=== PATIENT | female | born 1945 | race African-American/Black ===

== ENCOUNTER 2018-05-17 00:28 | Inpatient (IN) | payer OTHER, MEDICAID ==
[~2018-05-17] VITALS: Ht 157.5 cm; Wt 80.3 kg
[2018-05-17] VITALS (11 sets, daily range): BP systolic 92–126; BP diastolic 40–50
[2018-05-17] MEDS ORDERED: PANTOPRAZOLE SODIUM 40 MG/VIAL IV STA (01:00)
[2018-05-17] MEDS ORDERED: ONDANSETRON HCL 4MG/2ML INJ IV STA (01:00)
[2018-05-17 02:08] LABS: BASOPHILS % 0.6 % (0.0-2.0); EOSINOPHILS % 0.2 % (0.0-5.0); HEMATOCRIT. 24.8 % (36.0-48.0); HEMOGLOBIN. 7.8 g/dL (12.0-16.0); LYMPHOCYTES % 9.1 % (20.0-50.0); MEAN CORPUSCULAR HEMOGLOBIN 29.3 pg (28.0-32.0); MEAN CORPUSCULAR VOLUME 92.8 fL (81.0-99.0); MONOCYTES % 10.4 % (2.0-8.0); NEUTROPHILS % 79.7 % (40.0-76.0); PLATELET 138 x1000/uL (130-400); RED BLOOD CELL COUNT 2.67 mill/uL (4.2-5.4); RED CELL DISTRIBUTION WIDTH 17.5 % (11.6-14.6)
[2018-05-17 02:09] LABS: CHLORIDE 111 mEq/L (98-107)
[2018-05-17 02:12] LABS: INR 1.1; PARTIAL THROMBOPLASTIN TIME 29.4 sec (23.4-31.0)
[2018-05-17] MEDS ORDERED: ONDANSETRON HCL 4MG/2ML INJ IV PRN (04:00)
[2018-05-17] MEDS ORDERED: DEXTROSE 50% WATER 50ML SYRINGE IV PRN (04:00)
[2018-05-17] MEDS: INSULIN LISPRO 100 UNITS/ML SUBCUT SCH ×4 (08:20→21:00)
[2018-05-17] MEDS: BLOOD SUGAR DIAGNOSTIC STRIP TEST SCH ×4 (09:49→21:00)
[2018-05-17] MEDS: PANTOPRAZOLE SODIUM 40 MG/VIAL IV SCH ×2 (10:15→23:06)
[2018-05-17] MEDS ORDERED: ALBU05 NEB (11:00)
[2018-05-17] MEDS ORDERED: HYDR-4135 MT (11:00)
[2018-05-17] MEDS ORDERED: ASPI-1159 MT (11:00)
[2018-05-17] MEDS ORDERED: CHOL200077 MT (11:00)
[2018-05-17] MEDS ORDERED: B CO1TAB4 PO (11:00)
[2018-05-17] MEDS ORDERED: VITAMIN D3 PO (11:00)
[2018-05-17] MEDS ORDERED: DILT180C51 MT (11:00)
[2018-05-17] MEDS ORDERED: CINA60 MT (11:00)
[2018-05-17] MEDS ORDERED: GLUC-210 PO (11:00)
[2018-05-17] MEDS ORDERED: SEVE800T8 MT (11:00)
[2018-05-17] MEDS ORDERED: FOS1G MT (11:00)
[2018-05-17] MEDS ORDERED: FLUT1DIS6 INH (11:00)
[2018-05-17] MEDS ORDERED: LISI40TA4 MT (11:00)
[2018-05-17] MEDS ORDERED: NITR0.4T SL (11:02)
[2018-05-17] MEDS: SODIUM CHLORIDE 0.9% 1,000 ML IV SCH (11:18)
[2018-05-17 12:17] LABS: BASOPHILS % 0.7 % (0.0-2.0); EOSINOPHILS % 0.2 % (0.0-5.0); HEMATOCRIT. 21.9 % (36.0-48.0); LYMPHOCYTES % 18.4 % (20.0-50.0); MEAN CORPUSCULAR HEMOGLOBIN 29.2 pg (28.0-32.0); MEAN CORPUSCULAR VOLUME 91.3 fL (81.0-99.0); MEAN PLATELET VOLUME 7.7 fl (7.4-10.4); MONOCYTES % 12.6 % (2.0-8.0); NEUTROPHILS % 68.1 % (40.0-76.0); PLATELET 106 x1000/uL (130-400); RED CELL DISTRIBUTION WIDTH 17.8 % (11.6-14.6)
[2018-05-17 14:49] LABS: TOTAL IRON BINDING CAPACITY 229 ug/dL (250-450)
[2018-05-17 15:07] LABS: FOLIC ACID (FOLATE) SERUM 18.7 ng/mL (>5.38)
[2018-05-17 17:20] LABS: HEMOGLOBIN 6.9 g/dL (12.0-16.0)
[2018-05-17 17:21] LABS: HEMATOCRIT 21.3 % (36.0-48.0)
[2018-05-18] VITALS (10 sets, daily range): BP systolic 100–132; BP diastolic 43–64
[2018-05-18 00:19] LABS: HEMATOCRIT 22.7 % (36.0-48.0); HEMOGLOBIN 7.6 g/dL (12.0-16.0)
[2018-05-18 07:15] LABS: BASOPHILS % 0.5 % (0.0-2.0); EOSINOPHILS % 1.4 % (0.0-5.0); HEMATOCRIT. 22.4 % (36.0-48.0); HEMOGLOBIN. 7.5 g/dL (12.0-16.0); LYMPHOCYTES % 16.9 % (20.0-50.0); MEAN CORPUSCULAR HEMOGLOBIN 30.3 pg (28.0-32.0); MEAN CORPUSCULAR VOLUME 90.2 fL (81.0-99.0); MEAN PLATELET VOLUME 7.9 fl (7.4-10.4); MONOCYTES % 13.2 % (2.0-8.0); PLATELET 119 x1000/uL (130-400); RED BLOOD CELL COUNT 2.48 mill/uL (4.2-5.4); RED CELL DISTRIBUTION WIDTH 17.4 % (11.6-14.6)
[2018-05-18] MEDS: BLOOD SUGAR DIAGNOSTIC STRIP TEST SCH ×4 (07:30→20:16)
[2018-05-18] MEDS: INSULIN LISPRO 100 UNITS/ML SUBCUT SCH ×4 (08:00→20:30)
[2018-05-18 08:05] LABS: HEPATITIS B SURFACE ANTIGEN NEGATIVE
[2018-05-18] MEDS: PANTOPRAZOLE SODIUM 40 MG/VIAL IV SCH ×2 (09:58→20:16)
[2018-05-18] MEDS: SODIUM CHLORIDE 0.9% 1,000 ML IV SCH (09:59)
[2018-05-18 12:04] LABS: HEMATOCRIT 23.1 % (36.0-48.0); HEMOGLOBIN 7.6 g/dL (12.0-16.0)
[2018-05-18] MEDS: ACETAMINOPHEN 325MG TABLET PO PRN ×2 (12:23→18:53)
== END 2018-05-18 22:05 | disposition short-term general hospital (02) | DRG 377 ==
LOC: ER 00:28 → 5EST 02:30 → EDBEDREQSVC 02:32 → EDBEDREQ 02:32 → ENRESERV 07:19
PROVIDERS: ADMIT Internal Medicine; ATTEND Internal Medicine
PROC: 30233N1 Transfusion of Nonautologous Red Blood Cells into Peripheral Vein, Percutaneous Approach (ICD-10-PCS; principal; 2018-05-17)
PROC: 5A1D70Z Performance of Urinary Filtration, Intermittent, Less than 6 Hours Per Day (ICD-10-PCS; 2018-05-17)
DX: K92.0 Hematemesis (principal); N18.6 End stage renal disease; E46 Unspecified protein-calorie malnutrition; E87.0 Hyperosmolality and hypernatremia; I12.0 Hypertensive chronic kidney disease with stage 5 chronic kidney disease or end stage renal disease; K92.1 Melena; D64.9 Anemia, unspecified; E11.649 Type 2 diabetes mellitus with hypoglycemia without coma; I95.9 Hypotension, unspecified; E11.22 Type 2 diabetes mellitus with diabetic chronic kidney disease; I25.10 Atherosclerotic heart disease of native coronary artery without angina pectoris; E87.5 Hyperkalemia; K21.9 Gastro-esophageal reflux disease without esophagitis; Z79.82 Long term (current) use of aspirin; Z83.3 Family history of diabetes mellitus; Z87.11 Personal history of peptic ulcer disease; Z99.2 Dependence on renal dialysis; Z88.0 Allergy status to penicillin; Z68.32 Body mass index [BMI] 32.0-32.9, adult
CPT/HCPCS: 36415; 71045; 80048; 82607; 82728; 82746; 82962; 83540; 83550; 83605; 85014; 85018; 86803; 86850; 86900; 86920; 87340; 93970; 96374; 96375; 99291; C9113; J2405; J7040; J7050; P9016

== ENCOUNTER 2022-03-28 06:00 | Inpatient (IN) | payer OTHER, MEDICAID ==
[2022-03-28] VITALS (39 sets, daily range): BP systolic 80–162; BP diastolic 32–104
[~2022-03-28] VITALS: Ht 167.6 cm; Wt 59.9 kg
[~2022-03-28 06:00] MED LIST: ALBU05 NEB; ASPI-1497 MT; B-CO1TAB PO; CHOL200077 MT; CINA60 MT; DILT180C51 MT; FLUT1DIS6 INH; FOS1G MT; GLUC-210 PO; HYDR-4135 MT; LISI40TA13 MT; NITR0.4T SL; SEVE800T8 MT; VITAMIN D3 PO
[2022-03-28] MEDS ORDERED: DEXTROSE 50% WATER 50ML SYRINGE IV ONE (06:15)
[2022-03-28 06:42] LABS: HEMATOCRIT. 36.1 % (36.0-48.0); HEMOGLOBIN. 10.8 g/dL (12.0-16.0); MEAN CORPUSCULAR VOLUME 96.9 fL (81.0-99.0); MEAN PLATELET VOLUME 7.8 fl (7.4-10.4); PLATELET 137 x1000/uL (130-400); RED BLOOD CELL COUNT 3.72 mill/uL (4.2-5.4); RED CELL DISTRIBUTION WIDTH 18.9 % (11.6-14.6)
[2022-03-28 06:48] LABS: CHLORIDE 110 mEq/L (98-107)
[2022-03-28 07:26] LABS: PLATELET ESTIMATE NORMAL
[2022-03-28] MEDS ORDERED: FUROSEMIDE 40MG/4ML VIAL IVP ONE (08:30)
[2022-03-28] MEDS ORDERED: VANCOMYCIN 1G PREMIX 200 ML IV ONE (08:30)
[2022-03-28] MEDS ORDERED: PIPERACILLIN/TAZ 3.375G PREMIX 50 ML IV ONE (08:30)
[2022-03-28 08:32] LABS: BG BASE EXCESS -4.3 mmol/L (-2.0-2.0); BG CARBOXYHEMOGLOBIN 1.3 % (0.5-1.5); BG DEOXYHEMOGLOBIN 1.8 % (0.0-5.0); BG HCO3 ACT 24.5 mmol/L (22.0-26.0); BG METHEMOGLOBIN 0.2 % (0.0-1.5); BG OXYGEN SATURATION 98.2 % (92.0-98.5); BG OXYHEMOGLOBIN 96.7 % (94.0-97.0); BG PCO2 65.3 mmHg (35.0-45.0); BG PH 7.192 (7.350-7.450); BG PO2 135.2 mmHg (75.0-100.0); BG SAMPLE SITE RIGHT RADIAL; BG TOTAL HEMOGLOBIN 10.8 g/dL (12.0-18.0); BG VENT MODE MASK - BIPAP
[2022-03-28] MEDS ORDERED: PROPOFOL 10MG/ML 100ML 100 ML IV ONE (08:45)
[2022-03-28] MEDS ORDERED: ETOMIDATE 2MG/ML 10ML VIAL IV ONE (08:45)
[2022-03-28] MEDS ORDERED: SUCCINYLCHOLINE CHLORIDE 200MG/10ML IV ONE (08:45)
[2022-03-28] MEDS: NOREPINEPHRINE 8MG/250ML PMX 250 ML IV STA ×2 (10:10→10:15)
[2022-03-28] MEDS ORDERED: ACETAMINOPHEN 650MG SUPP PR ONE (10:15)
[2022-03-28] MEDS ORDERED: SODIUM CHLORIDE 0.9% 1,000 ML IV ONE (10:15)
[2022-03-28 11:05] LABS: BG BASE EXCESS -8.2 mmol/L (-2.0-2.0); BG CARBOXYHEMOGLOBIN 1.3 % (0.5-1.5); BG HCO3 ACT 21.7 mmol/L (22.0-26.0); BG METHEMOGLOBIN 0.2 % (0.0-1.5); BG OXYGEN SATURATION 75.6 % (92.0-98.5); BG OXYHEMOGLOBIN 74.5 % (94.0-97.0); BG PCO2 66.8 mmHg (35.0-45.0); BG PH 7.129 (7.350-7.450); BG PO2 47.7 mmHg (75.0-100.0); BG SAMPLE SITE RIGHT BRACHIAL; BG VENT MODE VENT - AC
[2022-03-28] MEDS ORDERED: ACETAMINOPHEN 650MG SUPP PR PRN (11:45)
[2022-03-28] MEDS ORDERED: DEXTROSE 50% WATER 50ML SYRINGE IV PRN (11:45)
[2022-03-28 12:30] LABS: BG CARBOXYHEMOGLOBIN 1.2 % (0.5-1.5); BG FRACTION INSPIRED OXYGEN 45; BG HCO3 ACT 21.1 mmol/L (22.0-26.0); BG METHEMOGLOBIN 0.4 % (0.0-1.5); BG OXYGEN SATURATION 83.7 % (92.0-98.5); BG OXYHEMOGLOBIN 82.4 % (94.0-97.0); BG PCO2 66.9 mmHg (35.0-45.0); BG PH 7.116 (7.350-7.450); BG SAMPLE SITE RIGHT RADIAL; BG TOTAL HEMOGLOBIN 12.3 g/dL (12.0-18.0); BG VENT MODE VENT - AC
[2022-03-28] MEDS ORDERED: PROPOFOL 10MG/ML 100ML 100 ML IV PRN (12:30)
[2022-03-28] MEDS ORDERED: NOREPINEPHRINE 8MG/250ML PMX 250 ML IV PRN (12:30)
[2022-03-28] MEDS ORDERED: ENOXAPARIN 40MG/0.4ML SYR SUBCUT SCH (13:00)
[2022-03-28] MEDS ORDERED: ENOXAPARIN 30MG/0.3ML SYR SUBCUT SCH (13:00)
[2022-03-28] MEDS: INSULIN LISPRO 100 UNITS/ML SUBCUT SCH ×3 (13:03→21:00)
[2022-03-28] MEDS ORDERED: IPRATROPIUM/ALBUTEROL 0.5-3(2.5)MG/3ML NEB HHN PRN (13:15)
[2022-03-28] MEDS: BLOOD SUGAR DIAGNOSTIC STRIP TEST SCH ×3 (13:38→21:26)
[2022-03-28] MEDS ORDERED: NOREPINEPHRINE 8 MG in DEXT 5% WATER 242 ML IV PRN (14:00)
[2022-03-28] MEDS: ENOXAPARIN 30MG/0.3ML SYR SUBCUT SCH (14:34)
[2022-03-28] MEDS: IPRATROPIUM/ALBUTEROL 0.5-3(2.5)MG/3ML NEB HHN SCH ×2 (16:00→20:27)
[2022-03-28] MEDS ORDERED: VANCOMYCIN 500MG PREMIX 100 ML IV SCH (18:00)
[2022-03-28] MEDS: NOREPINEPHRINE 32 MG in DEXT 5% WATER 218 ML IV PRN (18:01)
[2022-03-28] MEDS: ACETAMINOPHEN 650MG/20.3ML UDC PO PRN (18:47)
[2022-03-28] MEDS ORDERED: PIPERACILLIN/TAZOBACTAM 3.375 G in DEXTROSE 5% WATER 50 ML IV SCH (21:00)
[2022-03-28] MEDS: FAMOTIDINE 20MG/2ML VIAL IV SCH (21:28)
[2022-03-28] MEDS: PIPERACILLIN/TAZOBACTAM 3.375 G in DEXTROSE 5% WATER 50 ML IV SCH (23:00)
[2022-03-29] VITALS (76 sets, daily range): BP systolic 96–153; BP diastolic 43–77
[2022-03-29] MEDS: IPRATROPIUM/ALBUTEROL 0.5-3(2.5)MG/3ML NEB HHN SCH ×6 (00:41→20:30)
[2022-03-29 05:53] LABS: HEMATOCRIT. 34.8 % (36.0-48.0); HEMOGLOBIN. 10.4 g/dL (12.0-16.0); MEAN CORPUSCULAR HEMOGLOBIN 28.7 pg (28.0-32.0); MEAN CORPUSCULAR VOLUME 95.9 fL (81.0-99.0); MEAN PLATELET VOLUME 8.3 fl (7.4-10.4); PLATELET 131 x1000/uL (130-400); RED BLOOD CELL COUNT 3.63 mill/uL (4.2-5.4); RED CELL DISTRIBUTION WIDTH 18.7 % (11.6-14.6)
[2022-03-29] MEDS: INSULIN LISPRO 100 UNITS/ML SUBCUT SCH ×4 (06:11→21:00)
[2022-03-29] MEDS: BLOOD SUGAR DIAGNOSTIC STRIP TEST SCH ×4 (06:11→21:13)
[2022-03-29 06:15] LABS: CHLORIDE 113 mEq/L (98-107)
[2022-03-29 06:36] LABS: T4 FREE 1.19 ng/dL (0.76-1.46)
[2022-03-29 07:51] LABS: BG BASE EXCESS -2.4 mmol/L (-2.0-2.0); BG CARBOXYHEMOGLOBIN 0.7 % (0.5-1.5); BG DEOXYHEMOGLOBIN 4.3 % (0.0-5.0); BG FRACTION INSPIRED OXYGEN 60; BG HCO3 ACT 22.6 mmol/L (22.0-26.0); BG METHEMOGLOBIN 0.2 % (0.0-1.5); BG OXYGEN SATURATION 95.7 % (92.0-98.5); BG OXYHEMOGLOBIN 94.8 % (94.0-97.0); BG PCO2 39.8 mmHg (35.0-45.0); BG PH 7.372 (7.350-7.450); BG PO2 79.6 mmHg (75.0-100.0); BG SAMPLE SITE RIGHT RADIAL; BG TOTAL HEMOGLOBIN 11.3 g/dL (12.0-18.0); BG TOTAL RESPIRATORY RATE 28 b/min; BG VENT MODE VENT - AC
[2022-03-29] MEDS: ASPIRIN 81MG EC TABLET PO SCH (10:00)
[2022-03-29] MEDS: PIPERACILLIN/TAZOBACTAM 3.375 G in DEXTROSE 5% WATER 50 ML IV SCH ×2 (10:06→21:13)
[2022-03-29] MEDS: DEXAMETHASONE 10 MG/ML VIAL IV SCH (10:07)
[2022-03-29] MEDS: ENOXAPARIN 30MG/0.3ML SYR SUBCUT SCH (16:54)
[2022-03-29 18:34] LABS: HEPATITIS B SURFACE ANTIGEN NEGATIVE
[2022-03-29] MEDS: FAMOTIDINE 20MG/2ML VIAL IV SCH (21:12)
[2022-03-30] VITALS (87 sets, daily range): BP systolic 94–138; BP diastolic 45–83
[2022-03-30] MEDS: IPRATROPIUM/ALBUTEROL 0.5-3(2.5)MG/3ML NEB HHN SCH ×6 (00:52→20:15)
[2022-03-30 05:51] LABS: HEMATOCRIT 33.7 % (36.0-48.0); HEMOGLOBIN 10.4 g/dL (12.0-16.0); MEAN CORPUSCULAR HEMOGLOBIN 28.7 pg (28.0-32.0); MEAN CORPUSCULAR VOLUME 93.5 fL (81.0-99.0); PLATELET 146 x1000/uL (130-400); RED BLOOD CELL COUNT 3.61 mill/uL (4.2-5.4); RED CELL DISTRIBUTION WIDTH 18.3 % (11.6-14.6)
[2022-03-30 05:57] LABS: CHLORIDE 107 mEq/L (98-107)
[2022-03-30 08:31] LABS: BG BASE EXCESS -0.4 mmol/L (-2.0-2.0); BG CARBOXYHEMOGLOBIN 0.3 % (0.5-1.5); BG DEOXYHEMOGLOBIN 1.2 % (0.0-5.0); BG HCO3 ACT 23.8 mmol/L (22.0-26.0); BG METHEMOGLOBIN 0.1 % (0.0-1.5); BG OXYGEN SATURATION 98.8 % (92.0-98.5); BG OXYHEMOGLOBIN 98.4 % (94.0-97.0); BG PCO2 37.4 mmHg (35.0-45.0); BG PH 7.422 (7.350-7.450); BG PO2 158.4 mmHg (75.0-100.0); BG SAMPLE SITE RIGHT RADIAL; BG TOTAL HEMOGLOBIN 11.6 g/dL (12.0-18.0); BG VENT MODE VENT - AC
[2022-03-30] MEDS: ASPIRIN 81MG EC TABLET PO SCH (09:00)
[2022-03-30] MEDS: DEXAMETHASONE 10 MG/ML VIAL IV SCH (09:00)
[2022-03-30] MEDS: PIPERACILLIN/TAZOBACTAM 3.375 G in DEXTROSE 5% WATER 50 ML IV SCH ×2 (09:30→21:17)
[2022-03-30] MEDS: BLOOD SUGAR DIAGNOSTIC STRIP TEST SCH ×3 (11:30→21:23)
[2022-03-30 11:50] LABS: NUCLEATED RED BLOOD CELLS 1 /100 WBC
[2022-03-30 11:51] LABS: PLATELET ESTIMATE NORMAL
[2022-03-30] MEDS: INSULIN LISPRO 100 UNITS/ML SUBCUT SCH ×3 (12:00→21:00)
[2022-03-30] MEDS: ENOXAPARIN 30MG/0.3ML SYR SUBCUT SCH (13:05)
[2022-03-30] MEDS: FAMOTIDINE 20MG/2ML VIAL IV SCH (21:23)
[2022-03-31] VITALS (93 sets, daily range): BP systolic 82–146; BP diastolic 29–74
[2022-03-31] MEDS: IPRATROPIUM/ALBUTEROL 0.5-3(2.5)MG/3ML NEB HHN SCH ×6 (01:29→19:47)
[2022-03-31 06:20] LABS: HEMOGLOBIN 10.6 g/dL (12.0-16.0); MEAN CORPUSCULAR HEMOGLOBIN 29.2 pg (28.0-32.0); MEAN CORPUSCULAR VOLUME 93.7 fL (81.0-99.0); PLATELET 163 x1000/uL (130-400); RED BLOOD CELL COUNT 3.63 mill/uL (4.2-5.4); RED CELL DISTRIBUTION WIDTH 18.3 % (11.6-14.6)
[2022-03-31 06:37] LABS: CHLORIDE 105 mEq/L (98-107)
[2022-03-31] MEDS: BLOOD SUGAR DIAGNOSTIC STRIP TEST SCH ×4 (06:49→20:33)
[2022-03-31] MEDS: INSULIN LISPRO 100 UNITS/ML SUBCUT SCH ×4 (06:49→20:33)
[2022-03-31 08:13] LABS: BG BASE EXCESS -2.3 mmol/L (-2.0-2.0); BG CARBOXYHEMOGLOBIN 0.5 % (0.5-1.5); BG DEOXYHEMOGLOBIN 3.4 % (0.0-5.0); BG HCO3 ACT 22.4 mmol/L (22.0-26.0); BG METHEMOGLOBIN 0.2 % (0.0-1.5); BG OXYGEN SATURATION 96.6 % (92.0-98.5); BG OXYHEMOGLOBIN 95.9 % (94.0-97.0); BG PCO2 38.2 mmHg (35.0-45.0); BG PH 7.386 (7.350-7.450); BG PO2 90.3 mmHg (75.0-100.0); BG SAMPLE SITE RIGHT RADIAL; BG VENT MODE VENT - AC
[2022-03-31] MEDS: ASPIRIN 81MG EC TABLET PO SCH (08:45)
[2022-03-31] MEDS: PIPERACILLIN/TAZOBACTAM 3.375 G in DEXTROSE 5% WATER 50 ML IV SCH ×2 (08:45→20:17)
[2022-03-31] MEDS: DEXAMETHASONE 10 MG/ML VIAL IV SCH (08:45)
[2022-03-31] MEDS ORDERED: LIDOCAINE HCL 1% 10 MG/ML 10ML VIAL ONE (09:44)
[2022-03-31] MEDS: ENOXAPARIN 30MG/0.3ML SYR SUBCUT SCH (13:44)
[2022-03-31] MEDS ORDERED: VANCOMYCIN 750MG PREMIX 150 ML IV SCH (14:00)
[2022-03-31] MEDS: ACETAMINOPHEN 650MG/20.3ML UDC PO PRN (15:40)
[2022-03-31] MEDS: FAMOTIDINE 20MG/2ML VIAL IV SCH (20:16)
[2022-04-01] VITALS (96 sets, daily range): BP systolic 86–152; BP diastolic 38–103
[2022-04-01] MEDS: IPRATROPIUM/ALBUTEROL 0.5-3(2.5)MG/3ML NEB HHN SCH ×6 (00:10→20:53)
[2022-04-01] MEDS: BLOOD SUGAR DIAGNOSTIC STRIP TEST SCH ×4 (06:04→20:48)
[2022-04-01] MEDS: INSULIN LISPRO 100 UNITS/ML SUBCUT SCH ×4 (06:04→20:35)
[2022-04-01] MEDS: DEXAMETHASONE 10 MG/ML VIAL IV SCH (08:17)
[2022-04-01] MEDS: PIPERACILLIN/TAZOBACTAM 3.375 G in DEXTROSE 5% WATER 50 ML IV SCH ×2 (08:17→20:15)
[2022-04-01] MEDS: ASPIRIN 81MG EC TABLET PO SCH (08:17)
[2022-04-01 10:44] LABS: BG BASE EXCESS 0.5 mmol/L (-2.0-2.0); BG CARBOXYHEMOGLOBIN 0.8 % (0.5-1.5); BG FRACTION INSPIRED OXYGEN 40; BG HCO3 ACT 24.8 mmol/L (22.0-26.0); BG METHEMOGLOBIN 0.1 % (0.0-1.5); BG OXYGEN SATURATION 93.9 % (92.0-98.5); BG OXYHEMOGLOBIN 93.1 % (94.0-97.0); BG PCO2 38.6 mmHg (35.0-45.0); BG PH 7.426 (7.350-7.450); BG PO2 70.7 mmHg (75.0-100.0); BG SAMPLE SITE RIGHT RADIAL; BG TOTAL HEMOGLOBIN 11.7 g/dL (12.0-18.0); BG VENT MODE VENT - AC
[2022-04-01] MEDS: ENOXAPARIN 30MG/0.3ML SYR SUBCUT SCH (12:31)
[2022-04-01] MEDS: FAMOTIDINE 20MG/2ML VIAL IV SCH (20:15)
[2022-04-02] VITALS (104 sets, daily range): BP systolic 90–153; BP diastolic 39–99
[2022-04-02] MEDS: IPRATROPIUM/ALBUTEROL 0.5-3(2.5)MG/3ML NEB HHN SCH ×7 (00:51→23:54)
[2022-04-02 06:12] LABS: BASOPHILS % 0.7 % (0.0-2.0); HEMATOCRIT. 36.4 % (36.0-48.0); HEMOGLOBIN. 11.4 g/dL (12.0-16.0); LYMPHOCYTES % 13.6 % (20.0-50.0); MEAN CORPUSCULAR HEMOGLOBIN 29.2 pg (28.0-32.0); MEAN CORPUSCULAR VOLUME 92.8 fL (81.0-99.0); MEAN PLATELET VOLUME 7.9 fl (7.4-10.4); MONOCYTES % 7.4 % (2.0-8.0); NEUTROPHILS % 78.3 % (40.0-76.0); PLATELET 208 x1000/uL (130-400); RED BLOOD CELL COUNT 3.92 mill/uL (4.2-5.4); RED CELL DISTRIBUTION WIDTH 18.2 % (11.6-14.6)
[2022-04-02] MEDS: BLOOD SUGAR DIAGNOSTIC STRIP TEST SCH ×4 (06:30→20:09)
[2022-04-02] MEDS: INSULIN LISPRO 100 UNITS/ML SUBCUT SCH ×4 (07:00→20:06)
[2022-04-02 07:52] LABS: BG BASE EXCESS -3.9 mmol/L (-2.0-2.0); BG CARBOXYHEMOGLOBIN 0.6 % (0.5-1.5); BG DEOXYHEMOGLOBIN 8.2 % (0.0-5.0); BG HCO3 ACT 20.1 mmol/L (22.0-26.0); BG METHEMOGLOBIN 0.3 % (0.0-1.5); BG OXYGEN SATURATION 91.7 % (92.0-98.5); BG OXYHEMOGLOBIN 90.9 % (94.0-97.0); BG PCO2 33.4 mmHg (35.0-45.0); BG PH 7.398 (7.350-7.450); BG PO2 65.6 mmHg (75.0-100.0); BG SAMPLE SITE RIGHT RADIAL; BG TOTAL HEMOGLOBIN 11.8 g/dL (12.0-18.0); BG VENT MODE VENT - AC
[2022-04-02] MEDS: ASPIRIN 81MG EC TABLET PO SCH (08:30)
[2022-04-02] MEDS: DEXAMETHASONE 10 MG/ML VIAL IV SCH (08:30)
[2022-04-02] MEDS: PIPERACILLIN/TAZOBACTAM 3.375 G in DEXTROSE 5% WATER 50 ML IV SCH ×2 (08:31→20:08)
[2022-04-02] MEDS: ENOXAPARIN 30MG/0.3ML SYR SUBCUT SCH (12:07)
[2022-04-02] MEDS: ACETAMINOPHEN 650MG/20.3ML UDC PO PRN (16:46)
[2022-04-02] MEDS ORDERED: DIGOXIN 500MCG/2ML AMP IV NR (17:45)
[2022-04-02] MEDS: FAMOTIDINE 20MG/2ML VIAL IV SCH (20:05)
[2022-04-02] MEDS ORDERED: VANCOMYCIN 750MG PREMIX 150 ML IV NR (21:00)
[2022-04-03] VITALS (96 sets, daily range): BP systolic 75–129; BP diastolic 30–96
[2022-04-03] MEDS: IPRATROPIUM/ALBUTEROL 0.5-3(2.5)MG/3ML NEB HHN SCH ×5 (04:03→20:37)
[2022-04-03 06:01] LABS: HEMATOCRIT 37.3 % (36.0-48.0); HEMOGLOBIN 11.4 g/dL (12.0-16.0); MEAN CORPUSCULAR HEMOGLOBIN 28.7 pg (28.0-32.0); MEAN CORPUSCULAR VOLUME 93.7 fL (81.0-99.0); PLATELET 259 x1000/uL (130-400); RED BLOOD CELL COUNT 3.98 mill/uL (4.2-5.4); RED CELL DISTRIBUTION WIDTH 18.1 % (11.6-14.6)
[2022-04-03 06:19] LABS: CHLORIDE 97 mEq/L (98-107)
[2022-04-03] MEDS: BLOOD SUGAR DIAGNOSTIC STRIP TEST SCH ×4 (06:30→21:05)
[2022-04-03] MEDS: INSULIN LISPRO 100 UNITS/ML SUBCUT SCH ×4 (07:00→21:06)
[2022-04-03] MEDS: ASPIRIN 81MG EC TABLET PO SCH (08:00)
[2022-04-03] MEDS: DEXAMETHASONE 10 MG/ML VIAL IV SCH (08:01)
[2022-04-03 08:51] LABS: BG BASE EXCESS 0.5 mmol/L (-2.0-2.0); BG CARBOXYHEMOGLOBIN 0.6 % (0.5-1.5); BG FRACTION INSPIRED OXYGEN 35; BG HCO3 ACT 24.7 mmol/L (22.0-26.0); BG OXYGEN SATURATION 93.9 % (92.0-98.5); BG OXYHEMOGLOBIN 92.4 % (94.0-97.0); BG PCO2 38.2 mmHg (35.0-45.0); BG PH 7.428 (7.350-7.450); BG PO2 71.3 mmHg (75.0-100.0); BG SAMPLE SITE RIGHT RADIAL; BG VENT MODE VENT - AC
[2022-04-03] MEDS ORDERED: SODIUM POLYSTYRENE SULFONATE 15 G/60 ML BOT PO NR (10:15)
[2022-04-03] MEDS: MIDODRINE HCL 5MG TABLET PO SCH ×3 (10:21→17:58)
[2022-04-03] MEDS: ENOXAPARIN 30MG/0.3ML SYR SUBCUT SCH (12:18)
[2022-04-03] MEDS: FAMOTIDINE 20MG/2ML VIAL IV SCH (21:05)
[2022-04-04] VITALS (94 sets, daily range): BP systolic 90–189; BP diastolic 38–80
[2022-04-04] MEDS: IPRATROPIUM/ALBUTEROL 0.5-3(2.5)MG/3ML NEB HHN SCH ×6 (00:03→20:12)
[2022-04-04] MEDS: BLOOD SUGAR DIAGNOSTIC STRIP TEST SCH ×4 (06:04→21:25)
[2022-04-04 06:17] LABS: BASOPHILS % 0.4 % (0.0-2.0); EOSINOPHILS % 0.5 % (0.0-5.0); HEMATOCRIT. 39.1 % (36.0-48.0); HEMOGLOBIN. 12.1 g/dL (12.0-16.0); LYMPHOCYTES % 16.5 % (20.0-50.0); MEAN CORPUSCULAR HEMOGLOBIN 28.9 pg (28.0-32.0); MEAN PLATELET VOLUME 7.5 fl (7.4-10.4); NEUTROPHILS % 73.6 % (40.0-76.0); PLATELET 302 x1000/uL (130-400); RED CELL DISTRIBUTION WIDTH 17.6 % (11.6-14.6)
[2022-04-04] MEDS: INSULIN LISPRO 100 UNITS/ML SUBCUT SCH ×4 (07:00→21:26)
[2022-04-04] MEDS: ASPIRIN 81MG EC TABLET PO SCH (08:26)
[2022-04-04] MEDS: DEXAMETHASONE 10 MG/ML VIAL IV SCH (08:26)
[2022-04-04] MEDS: MIDODRINE HCL 5MG TABLET PO SCH ×3 (08:26→17:25)
[2022-04-04 09:22] LABS: BG BASE EXCESS -1.4 mmol/L (-2.0-2.0); BG DEOXYHEMOGLOBIN 4.6 % (0.0-5.0); BG FRACTION INSPIRED OXYGEN 35; BG HCO3 ACT 23.1 mmol/L (22.0-26.0); BG METHEMOGLOBIN 0.3 % (0.0-1.5); BG OXYGEN SATURATION 95.4 % (92.0-98.5); BG OXYHEMOGLOBIN 95.1 % (94.0-97.0); BG PH 7.402 (7.350-7.450); BG PO2 82.3 mmHg (75.0-100.0); BG SAMPLE SITE RIGHT BRACHIAL; BG TOTAL HEMOGLOBIN 12.3 g/dL (12.0-18.0); BG TOTAL RESPIRATORY RATE 20 b/min; BG VENT MODE VENT - AC
[2022-04-04] MEDS: ENOXAPARIN 30MG/0.3ML SYR SUBCUT SCH (12:30)
[2022-04-04] MEDS: FAMOTIDINE 20MG/2ML VIAL IV SCH (21:25)
[2022-04-05] VITALS (91 sets, daily range): BP systolic 70–146; BP diastolic 33–93
[2022-04-05] MEDS: IPRATROPIUM/ALBUTEROL 0.5-3(2.5)MG/3ML NEB HHN SCH ×6 (00:18→20:56)
[2022-04-05] MEDS: INSULIN LISPRO 100 UNITS/ML SUBCUT SCH ×4 (06:20→21:12)
[2022-04-05] MEDS: BLOOD SUGAR DIAGNOSTIC STRIP TEST SCH ×4 (06:20→21:06)
[2022-04-05] MEDS: ASPIRIN 81MG EC TABLET PO SCH (08:14)
[2022-04-05] MEDS: MIDODRINE HCL 5MG TABLET PO SCH ×3 (08:15→17:44)
[2022-04-05] MEDS: DEXAMETHASONE 10 MG/ML VIAL IV SCH (08:15)
[2022-04-05 09:38] LABS: HEMATOCRIT. 42.3 % (36.0-48.0); HEMOGLOBIN. 12.8 g/dL (12.0-16.0); MEAN CORPUSCULAR HEMOGLOBIN 28.7 pg (28.0-32.0); MEAN CORPUSCULAR VOLUME 94.9 fL (81.0-99.0); MEAN PLATELET VOLUME 7.8 fl (7.4-10.4); PLATELET 366 x1000/uL (130-400); RED BLOOD CELL COUNT 4.46 mill/uL (4.2-5.4); RED CELL DISTRIBUTION WIDTH 17.5 % (11.6-14.6)
[2022-04-05] MEDS: ENOXAPARIN 30MG/0.3ML SYR SUBCUT SCH (12:37)
[2022-04-05] MEDS: NOREPINEPHRINE 32 MG in DEXT 5% WATER 218 ML IV PRN (12:38)
[2022-04-05 12:57] LABS: NUCLEATED RED BLOOD CELLS 1 /100 WBC; PLATELET ESTIMATE NORMAL
[2022-04-05] MEDS: FAMOTIDINE 20MG/2ML VIAL IV SCH (20:50)
[2022-04-05] MEDS: ACETAMINOPHEN 650MG/20.3ML UDC PO PRN (21:12)
[2022-04-06] VITALS (98 sets, daily range): BP systolic 43–137; BP diastolic 22–77
[2022-04-06] MEDS: IPRATROPIUM/ALBUTEROL 0.5-3(2.5)MG/3ML NEB HHN SCH ×7 (01:07→23:39)
[2022-04-06 05:29] LABS: CHLORIDE 102 mEq/L (98-107); HEMATOCRIT 39.9 % (36.0-48.0); HEMOGLOBIN 12.3 g/dL (12.0-16.0); MEAN CORPUSCULAR HEMOGLOBIN 28.7 pg (28.0-32.0); MEAN CORPUSCULAR VOLUME 93.6 fL (81.0-99.0); PLATELET 457 x1000/uL (130-400); RED BLOOD CELL COUNT 4.27 mill/uL (4.2-5.4); RED CELL DISTRIBUTION WIDTH 17.5 % (11.6-14.6)
[2022-04-06] MEDS: BLOOD SUGAR DIAGNOSTIC STRIP TEST SCH ×4 (06:17→21:33)
[2022-04-06] MEDS: INSULIN LISPRO 100 UNITS/ML SUBCUT SCH ×4 (06:19→21:34)
[2022-04-06] MEDS: ASPIRIN 81MG EC TABLET PO SCH (08:40)
[2022-04-06] MEDS: MIDODRINE HCL 5MG TABLET PO SCH ×3 (08:40→16:41)
[2022-04-06] MEDS: DEXAMETHASONE 10 MG/ML VIAL IV SCH (08:40)
[2022-04-06] MEDS ORDERED: SODIUM POLYSTYRENE SULFONATE 15 G/60 ML BOT PO NR (10:00)
[2022-04-06] MEDS: ENOXAPARIN 30MG/0.3ML SYR SUBCUT SCH (12:23)
[2022-04-06 13:04] LABS: BG BASE EXCESS 0.3 mmol/L (-2.0-2.0); BG CARBOXYHEMOGLOBIN 1.1 % (0.5-1.5); BG DEOXYHEMOGLOBIN 4.4 % (0.0-5.0); BG FRACTION INSPIRED OXYGEN 35; BG HCO3 ACT 25.1 mmol/L (22.0-26.0); BG METHEMOGLOBIN 0.2 % (0.0-1.5); BG OXYGEN SATURATION 95.5 % (92.0-98.5); BG OXYHEMOGLOBIN 94.3 % (94.0-97.0); BG PCO2 41.1 mmHg (35.0-45.0); BG PH 7.403 (7.350-7.450); BG PO2 84.9 mmHg (75.0-100.0); BG SAMPLE SITE RIGHT RADIAL; BG VENT MODE VENT - AC
[2022-04-06] MEDS: FAMOTIDINE 20MG/2ML VIAL IV SCH (21:18)
[2022-04-07] VITALS (87 sets, daily range): BP systolic 85–142; BP diastolic 29–78
[2022-04-07] MEDS: IPRATROPIUM/ALBUTEROL 0.5-3(2.5)MG/3ML NEB HHN SCH ×4 (03:46→20:42)
[2022-04-07 05:18] LABS: BASOPHILS % 0.4 % (0.0-2.0); EOSINOPHILS % 0.1 % (0.0-5.0); HEMOGLOBIN. 11.8 g/dL (12.0-16.0); LYMPHOCYTES % 14.2 % (20.0-50.0); MEAN CORPUSCULAR VOLUME 93.4 fL (81.0-99.0); MEAN PLATELET VOLUME 7.6 fl (7.4-10.4); MONOCYTES % 8.4 % (2.0-8.0); NEUTROPHILS % 76.9 % (40.0-76.0); PLATELET 497 x1000/uL (130-400); RED BLOOD CELL COUNT 4.07 mill/uL (4.2-5.4); RED CELL DISTRIBUTION WIDTH 17.1 % (11.6-14.6)
[2022-04-07] MEDS: BLOOD SUGAR DIAGNOSTIC STRIP TEST SCH ×4 (06:12→20:22)
[2022-04-07] MEDS: INSULIN LISPRO 100 UNITS/ML SUBCUT SCH ×4 (06:13→20:46)
[2022-04-07 08:47] LABS: BG BASE EXCESS -0.7 mmol/L (-2.0-2.0); BG CARBOXYHEMOGLOBIN 0.3 % (0.5-1.5); BG DEOXYHEMOGLOBIN 3.4 % (0.0-5.0); BG FRACTION INSPIRED OXYGEN 35; BG HCO3 ACT 23.8 mmol/L (22.0-26.0); BG METHEMOGLOBIN 0.3 % (0.0-1.5); BG OXYGEN SATURATION 96.6 % (92.0-98.5); BG PCO2 38.8 mmHg (35.0-45.0); BG PH 7.406 (7.350-7.450); BG SAMPLE SITE RIGHT BRACHIAL; BG TOTAL HEMOGLOBIN 12.4 g/dL (12.0-18.0); BG VENT MODE VENT - AC
[2022-04-07] MEDS: ASPIRIN 81MG EC TABLET PO SCH (09:34)
[2022-04-07] MEDS: DEXAMETHASONE 10 MG/ML VIAL IV SCH (09:34)
[2022-04-07] MEDS: MIDODRINE HCL 5MG TABLET PO SCH ×3 (09:35→18:10)
[2022-04-07] MEDS: ENOXAPARIN 30MG/0.3ML SYR SUBCUT SCH (12:24)
[2022-04-07] MEDS: FAMOTIDINE 20MG/2ML VIAL IV SCH (20:45)
== END 2022-04-07 22:20 | disposition short-term general hospital (02) | DRG 870 ==
LOC: ER 06:00 → MICUSO 10:55 → EDBEDREQ 11:07 → EDBEDREQTM 11:07 → EDBEDREQSVC 11:07 → ENRESERV 11:35 → MICUNO 03-30 02:15
PROVIDERS: ADMIT Internal Medicine; ATTEND Internal Medicine
PROC: 0BH17EZ Insertion of Endotracheal Airway into Trachea, Via Natural or Artificial Opening (ICD-10-PCS; principal; 2022-03-28)
PROC: 5A1955Z Respiratory Ventilation, Greater than 96 Consecutive Hours (ICD-10-PCS; 2022-03-28)
PROC: 5A09357 Assistance with Respiratory Ventilation, Less than 24 Consecutive Hours, Continuous Positive Airway Pressure (ICD-10-PCS; 2022-03-28)
PROC: 06HM33Z Insertion of Infusion Device into Right Femoral Vein, Percutaneous Approach (ICD-10-PCS; 2022-03-28)
PROC: 5A12012 Performance of Cardiac Output, Single, Manual (ICD-10-PCS; 2022-03-28)
PROC: 5A1D70Z Performance of Urinary Filtration, Intermittent, Less than 6 Hours Per Day (ICD-10-PCS; 2022-03-29)
PROC: 5A1D70Z Performance of Urinary Filtration, Intermittent, Less than 6 Hours Per Day (ICD-10-PCS; 2022-03-31)
PROC: 05HY33Z Insertion of Infusion Device into Upper Vein, Percutaneous Approach (ICD-10-PCS; 2022-03-31)
PROC: 5A1D70Z Performance of Urinary Filtration, Intermittent, Less than 6 Hours Per Day (ICD-10-PCS; 2022-04-02)
PROC: 5A1D70Z Performance of Urinary Filtration, Intermittent, Less than 6 Hours Per Day (ICD-10-PCS; 2022-04-05)
PROC: 5A1D70Z Performance of Urinary Filtration, Intermittent, Less than 6 Hours Per Day (ICD-10-PCS; 2022-04-07)
DX: A41.89 Other specified sepsis (principal); L89.153 Pressure ulcer of sacral region, stage 3; G92.8 Other toxic encephalopathy; J96.02 Acute respiratory failure with hypercapnia; J96.01 Acute respiratory failure with hypoxia; U07.1 COVID-19; I21.4 Non-ST elevation (NSTEMI) myocardial infarction; J12.82 Pneumonia due to coronavirus disease 2019; N18.6 End stage renal disease; R65.21 Severe sepsis with septic shock; I46.9 Cardiac arrest, cause unspecified; E43 Unspecified severe protein-calorie malnutrition; E87.29 Other acidosis; I13.2 Hypertensive heart and chronic kidney disease with heart failure and with stage 5 chronic kidney disease, or end stage renal disease; J44.0 Chronic obstructive pulmonary disease with (acute) lower respiratory infection; D64.9 Anemia, unspecified; E66.9 Obesity, unspecified; E87.5 Hyperkalemia; E11.649 Type 2 diabetes mellitus with hypoglycemia without coma; E11.22 Type 2 diabetes mellitus with diabetic chronic kidney disease; I50.9 Heart failure, unspecified; I48.91 Unspecified atrial fibrillation; Z68.21 Body mass index [BMI] 21.0-21.9, adult; Z99.2 Dependence on renal dialysis; Z99.81 Dependence on supplemental oxygen; Z86.73 Personal history of transient ischemic attack (TIA), and cerebral infarction without residual deficits; Z79.899 Other long term (current) drug therapy; Z79.4 Long term (current) use of insulin; Z88.1 Allergy status to other antibiotic agents; Z87.448 Personal history of other diseases of urinary system
CPT/HCPCS: 31500; 36415; 36573; 36600; 71045; 80048; 80053; 80061; 80202; 82375; 82728; 82805; 82962; 83036; 83605; 83615; 83880; 84145; 84439; 84443; 84484; 85025; 85027; 85379; 85651; 86705; 86709; 86803; 87070; 87340; 87420; 87426; 87804; 90935; 93005; 93970; 94002; 94003; 94640; 99291; C1725; C9803; J1100; J1160; J1650; J1815; J1940; J2543; J2704; J3370; J3490; J7030; J7060; U0003; U0005